=== PATIENT | male | born 1965 | race Caucasian/White ===

== ENCOUNTER 2020-10-29 20:46 | Outpatient (REF) | payer MEDICAID, SELFPAY ==
[2020-10-29 21:28] LABS: HCT 41.3 % (40.0-50.0); HGB 14.4 g/dL (13.5-17.5); MCHC 34.9 % (32.0-36.0); MCV 94.5 fL (80-95); MPV 12.5 fL (8.0-11.0); Platelet Count 212 10^3/uL (130-400); RBC 4.37 10^6/uL (4.36-5.78); RDW 12.1 % (11.8-14.1); RDW-SD 42.1 fL; WBC 7.19 10^3/uL (4.4-10.8)
[2020-10-29 21:46] LABS: ALT 39 U/L (16-63); AST 21 U/L (15-37); Albumin 3.5 g/dL (3.4-5.0); Alkaline Phosphatase 132 U/L (46-116); BUN 11 mg/dL (7-18); Bilirubin, Total 0.3 mg/dL (0.2-1.0); CREATININE 0.9 mg/dL (0.70-1.30); Calcium 9.1 mg/dL (8.5-10.1); Chloride 106 mmol/L (98-107); Glucose 111 mg/dL (74-106); Potassium 4.6 mmol/L (3.5-5.1); Sodium 140 mmol/L (136-145); Total Protein 7.7 g/dL (6.4-8.2)
[2020-10-29 21:58] LABS: TSH (W/Ref FT4) < 0.01 uIU/mL (0.36-3.74)
[2020-10-29 22:13] LABS: FREE T4 1.72 ng/dL (0.76-1.46)
[2020-10-29 23:08] LABS: Prothrombin Time 9.7 sec (9.3-11.0)
== END 2020-10-29 20:47 | disposition home or self-care (01) ==
LOC: NCHCN 20:46
PROVIDERS: PCP Family Medicine; Visit Provider Physician Assistant
DX: E05.90 Thyrotoxicosis, unspecified without thyrotoxic crisis or storm (principal); I10 Essential (primary) hypertension
CPT/HCPCS: 80053; 85027; 84439; 84443; 85610

== ENCOUNTER 2020-11-18 16:13 | Outpatient (REF) | payer MEDICAID, SELFPAY ==
[2020-11-18 16:41] LABS: Anion Gap 8.3 mmol/L (3-11); BUN 21 mg/dL (7-18); CO2 23.7 mmol/L (21.0-32.0); CREATININE 1.1 mg/dL (0.70-1.30); Calcium 9.4 mg/dL (8.5-10.1); Chloride 104 mmol/L (98-107); FREE T4 1.83 ng/dL (0.76-1.46); Glucose 87 mg/dL (74-106); Potassium 5.1 mmol/L (3.5-5.1); Sodium 136 mmol/L (136-145)
[2020-11-18 16:43] LABS: TSH < 0.01 uIU/mL (0.36-3.74)
[2020-11-18 20:57] LABS: T3, Total 212 ng/dL (97-169)
[2020-11-18 22:07] LABS: Thyroglobulin Antibody 108 U/mL (<=60); Thyroperoxidase Antibody 29 U/mL (<=60)
== END 2020-11-18 16:14 | disposition home or self-care (01) ==
LOC: NCHCN 16:13
PROVIDERS: PCP Family Medicine; Visit Provider Family Medicine
DX: I10 Essential (primary) hypertension (principal); E05.90 Thyrotoxicosis, unspecified without thyrotoxic crisis or storm
CPT/HCPCS: 80048; 86376; 84439; 84443; 84480

== ENCOUNTER 2021-06-17 03:10 | Outpatient (CLI) | payer MEDICAID, SELFPAY ==
[2021-06-17 12:31] LABS: Source Nasal/Nares
[2021-06-17 17:09] LABS: COVID-19 PCR Negative (Negative)
== END 2021-06-17 03:11 | disposition home or self-care (01) ==
LOC: LBO 03:10
PROVIDERS: PCP Family Medicine; Visit Provider Surgery
DX: Z20.822 Contact with and (suspected) exposure to COVID-19 (principal); Z01.818 Encounter for other preprocedural examination
CPT/HCPCS: 87635

== ENCOUNTER 2021-06-20 07:00 | Day surgery (SDC) | payer MEDICAID, SELFPAY ==
--- NOTE | 2021-06-20 06:07 | W.ANESPRE ---
General Info Date of Service Date Performed: 06/20/21 Height: 5 ft 10 in Weight: 81.42 kg Body Mass Index (BMI): 25.7 Surgical Procedure: Operation Date: 06/20/21 08:20 Proposed Procedures Side Surgeon p Colonoscopy Tari Arce MD Meds Allergies and Home Medications Allergies Allergy/AdvReac Type Severity Reaction Status Date / Time amoxicillin [From Augmentin] Allergy Severe diarrhea Verified 06/20/21 07:17 clavulanic acid Allergy Severe diarrhea Verified 06/20/21 07:17 [From Augmentin] bupropion [From Wellbutrin] Allergy Intermediate anger, Verified 06/20/21 07:17 agitation Home Medication Medication Instructions Recorded lisinopril 10 1 tab PO DAILY 01/13/21 mg-hydrochlorothiazide 12.5 mg tablet bisacodyl 5 mg tablet,delayed 5 mg PO ONCE #4 tab 06/02/21 release polyethylene glycol 3350 17 17 g PO ONCE #238 g 06/02/21 gram/dose oral powder Current Visit Medications: Current Medications Generic Name Dose Route Start Last Admin Trade Name Freq PRN Reason Stop Dose Admin Ringer's Solution 1,000 mls @ 80 mls/hr 06/20/21 06:00 IV 07/17/21 23:59 INFUSION CINTHYA IV Miscellaneous Supplies 1 each 06/20/21 06:00 Iv Access IV 07/17/21 23:59 DIRECTED CINTHYA Sodium Chloride 0 ml 06/20/21 06:00 Normal Saline Flush 10 Ml Syr IV 07/17/21 23:59 PRN PRN Sodium Chloride 0 ml 06/20/21 06:00 Normal Saline 10 Ml Vial IJ 07/17/21 23:59 DIRECTED PRN Sterile Water 0 ml 06/20/21 06:00 Water,Injection,Sterile 10 Ml Vial IJ 07/17/21 23:59 DIRECTED PRN PFSH Active Problems Active Problems: Problem Status Onset Code Alcohol dependence F10.20 Tobacco dependence F17.200 Major depression F32.9 Hypertension I10 Rotator cuff syndrome of right shoulder M75.101 Hyperthyroidism E05.90 Alcoholic hepatitis K70.10 Erectile dysfunction N52.9 Hearing loss H91.90 Medical History Medical History History of rectal cancer Tobacco Smoking/Tobacco Use Status: Current every day Tobacco Type: cigarettes Alcohol Alcohol Intake: current Alcohol intake frequency: 3 or more drinks per day Alcohol type: beer Details: 4-5 Beers/night Substance Use Substance use: Never Substance use type: does not use Vital Signs and Lab Results Vital Signs Most Recent Vital Signs in EMR: Temp Pulse Resp BP Pulse Ox 37.1 C 102 H 16 163/85 H 95 06/20/21 07:18 06/20/21 07:18 06/20/21 07:18 06/20/21 07:18 06/20/21 07:18 Lab Results Blood Type / Crossmatch: No Data to Display Complete Blood Count: No Data to Display Complete Metabolic Panel: No Data to Display Liver Function Panel: No Data to Display Coagulation Panel: No Data to Display Cardiac Panel: No Data to Display Arterial Blood Gas: No Data to Display Venous Blood Gas: No Data to Display Pancreas Panel: No Data to Display Thyroid Panel: No Data to Display Infectious Disease: Coronavirus (COVID-19)(PCR) Negative (Negative) 06/17/21 11:47 06/17/21 Coronavirus 2019 Source Nasal/Nares 06/17/21 11:47 06/17/21 Blood Cultures: No Data to Display Toxicology Panel: No Data to Display Anesthesia Assessment and Plan Anesthesia History Personal History: No History of Anesthesia Complications Family History: No Family History of Anesthesia Complications Exercise Tolerance Exercise Tolerance: Metabolic Equivalents>4 Pertinent Negatives Pertinent Negatives: No Symptoms of GERD, No Major Cardiovascular Symptoms or Complaints, No Major Pulmonary Symptoms or Complaints and No History of CVA/TIA Cardiac & Pulmonary Exam Cardiac Exam: Normal S1/S2 Heart Sounds Pulmonary Exam: Clear Bilateral Breath Sounds Implantable Cardiac Device Does patient have a Pacemaker or an ICD?: No Airway Exam Known Difficult Airway: No Mallampati Class: 2 Mouth Opening: Normal (> 3cm) Thyromental Distance: Greater than 3 cm Neck Range of Motion: Full ROM Neck Circumference: Normal Teeth Condition: Generalized Poor Dentition (Nothing loose per patient) ASA Classification ASA Score: ASA 2 Emergency Case?: No NPO Status NPO Status: NPO Clears >2 hours, Solids >8 hours Anesthesia Plan Resuscitation Status: Full Code Anesthesia Technique: General Anesthesia Airway Planned: Natural Airway Monitors Used: Standard Monitors
--- NOTE | 2021-06-20 06:29 | W.COLOREPORT ---
Colonoscopy Report Date of procedure: 06/20/21 Pre-op diagnosis general: Hx of rectal cancer Post-op diagnosis procedure note: same (mild diverticulosis) Procedure: Colonoscopy Surgeon: Tari Arce Anesthesia Type: General:No Airway (Krysta Tate CRNA) Estimated blood loss (mL): 0 Pathology: none sent Complications: None Disposition: same day Indications: 55 y/o male with history of HTN and rectal Cancer (2005; s/p lower anterior resection) presents for colonoscopy screening pre-op. His last screening was in 2013, which was unremarkable. He denies a family history of colon cancer. He denies any changes in bowel habits, reporting chronic BRB following BMs since his surgery and radiation in 2005 for rectal cancer. Denies black tarry stools, abdominal pain, diarrhea or constipation. He denies constitutional symptoms. Denies use of marijuana or any other recreational or illegal drugs. Risks, benefits and complications were reviewed and he wished to proceed. No guarantees were given or implied. Prep: Miralax/Dulcolax Procedure Start Time: 08:03 Procedure End Time: :28 Retraction Time: 15 minutes Findings: mild sigmoid diverticulosis Procedure Description: After informed consent was obtained the patient was taken to the procedure room and placed in a left decubitous position. Monitors were applied and a time out was done. The patients name, date of , procedure, allergies to medications and metal in their body was reviewed. The patient was then sedated. Once sedated and comfortable a rectal exam was done. External exam showed some radiation proctitis. Internal exam revealed a normal sphincter tone and no palpable masses. The prostate felt smooth. The scope was then introduced and retro-flexed. No internal hemorrhoids, polyps or masses were identified on retro-flexion. The scope was then advanced to the cecum without difficulty. The ileocecal vlave and appendiceal orifice were identified. The prep was adequate. There was some thick bile stuck to the right side of the colon which was irrigated away with 1 L of saline in order to visualize the mucosa. The scope was then slowly retracted over 15 minutes back into the rectum. There were no polyps. There was mild sigmoid diverticulosis noted. The scope was removed and the patient was woken up and taken back to Same day surgery in stable condition. The patient tolerated the procedure well and there were no immediate complications. Follow up: The patient should follow up in 5 years unless they develop changes in bowel habits or other new gastrointestinal complaints.
--- NOTE | 2021-06-20 06:30 | W.PM.DSUDISC ---
Discharge Plan Disposition Patient Disposition: HOME Condition: Good Discharge Details Reason For Visit: Colonoscopy Attending Provider: Tari Arce Primary Care Provider: James Rosario Home Meds and New Rx's Prescriptions: Continued lisinopril-hydrochlorothiazide 10-12.5 mg tablet 1 tab PO DAILY RF: 0 Discontinued bisacodyl [Dulcolax (bisacodyl)] 5 mg tablet,delayed release (DR/EC) 5 mg PO ONCE Qty: 4 RF: 0 polyethylene glycol 3350 17 gram/dose powder 17 g PO ONCE Qty: 238 RF: 0 Discharge Instructions Instructions: Diverticulosis (DC) Additional Instructions: Findings: mild inflammation of the rectal area from the radiation mild diverticulosis Follow up: 5 years due to your history of rectal cancer Please call if you develop: fevers >101.5 Nausea or Vomiting Abdominal pain that is not transient Rectal bleeding that is more then a tbsp A hard abdomen and inability to pass gas DAY SURGERY UNIT POST ENDOSCOPY INSTRUCTIONS Instructions for everyone who is given Anesthesia: For your safety, please do the following for the next 24 Hours: a. Do not drive or operate dangerous equipment b. Do not drink alcohol beverages or use any recreational drugs for the first 24 hours or while taking pain medications. The medications in your body may have a reaction that can be dangerous. c. Do not make any important decisions or sign any important papers 1. Generally there are no restrictions on your activity after a day or so has gone by, but you may feel a bit fatigued for a few days. 2. After you arrive home you may have a light meal and return to a normal diet as you can tolerate it without feeling sick to your stomach. 3. After surgery, you may feel pain or discomfort. This should be only transient, but if it persists please contact your doctor. 4. If there are any questions regarding the findings of your procedure, please feel free to contact your doctor. 6. If you are unable to contact your doctor with a problem, contact the hospital at [phone]. 7. Continue all your regular medications unless directed otherwise. I understand the above instructions and have no questions. Signature of Patient or Responsible Adult Escort Date/Time Name of Responsible Adult Escort Signature of Nurse Date/Time Activity:: Activity as Tolerated Diet:: high fiber diet Discharge Orders Discharge Orders: Discharge Order (Routine); Ordered 06/20/21 Ordered By: Tari Arce
[2021-06-20 07:18] VITALS: BP 163/85; PULSE 102; RESP 16; TEMP 37.1; O2SAT 95
[2021-06-20] MEDS: Lactated Ringers 1,000 ML 80 ML IV (07:31)
[2021-06-20 07:52] VITALS: BMI 25.7
[2021-06-20 08:35] VITALS: BP 101/67; PULSE 75; RESP 16; TEMP 37.1; O2SAT 95
--- NOTE | 2021-06-20 09:01 | W.ANESPOSTOP ---
Postoperative Evaluation Date, Time and Location Date Performed: 06/20/21 Time Performed: 08:38 Patient Location: Day Surgery Unit Vital Signs Most Recent Imported Vital Signs: Most Recent Vital Signs Temp Pulse Resp BP Pulse Ox 37.1 C 75 16 101/67 95 06/20/21 08:35 06/20/21 08:35 06/20/21 08:35 06/20/21 08:35 06/20/21 08:35 Pain Score Most Recent Pain Score: Most Recent Pain Score Pain Level 0 06/20/21 08:35 Assessment Mental Status: Awake (Alert & Oriented to Patient Baseline) Airway and Respiratory Function: Patent airway with normal (patient baseline) respiratory exam Cardiovascular Function: Hemodynamically Stable Hydration Status: Adequately Hydrated Nausea & Vomiting: No Nausea or Vomiting Pain: Pt. Denies Any Pain Peripheral Nerve Block: Patient did not receive a nerve block
[2021-06-20 09:12] VITALS: BP 150/85; PULSE 69; RESP 16; TEMP 36.7; O2SAT 99
== END 2021-06-20 09:28 | disposition home or self-care (01) ==
LOC: SUR 07:00
PROVIDERS: PCP Family Medicine; Visit Provider Surgery
PROC: 0DJD8ZZ Inspection of Lower Intestinal Tract, Via Natural or Artificial Opening Endoscopic (ICD-10-PCS; CPT 45378; principal; 2021-06-20 08:15)
DX: Z12.11 Encounter for screening for malignant neoplasm of colon (principal); Z85.048 Personal history of other malignant neoplasm of rectum, rectosigmoid junction, and anus; K57.30 Diverticulosis of large intestine without perforation or abscess without bleeding; F17.210 Nicotine dependence, cigarettes, uncomplicated
CPT/HCPCS: 45378; J2001

== ENCOUNTER 2021-09-23 13:31 | Outpatient (REF) | payer MEDICAID, SELFPAY ==
[2021-09-23 15:23] LABS: ALT 42 U/L (16-63); AST 24 U/L (15-37); Albumin 3.4 g/dL (3.4-5.0); Alkaline Phosphatase 101 U/L (46-116); Anion Gap 9.1 mmol/L (3-11); BUN 18 mg/dL (7-18); Bilirubin, Total 0.5 mg/dL (0.2-1.0); CO2 21.9 mmol/L (21.0-32.0); Chloride 107 mmol/L (98-107); Glucose 94 mg/dL (74-106); Potassium 4.5 mmol/L (3.5-5.1); Sodium 138 mmol/L (136-145); TSH < 0.01 uIU/mL (0.36-3.74); Total Protein 7.5 g/dL (6.4-8.2)
[2021-09-23 22:52] LABS: T3, Total 230 ng/dL (97-169)
== END 2021-09-23 13:32 | disposition home or self-care (01) ==
LOC: NCHCN 13:31
PROVIDERS: PCP Family Medicine; Visit Provider Family Medicine
DX: I10 Essential (primary) hypertension (principal); E05.90 Thyrotoxicosis, unspecified without thyrotoxic crisis or storm; F10.10 Alcohol abuse, uncomplicated
CPT/HCPCS: 80053; 84439; 84443; 84480

== ENCOUNTER 2021-10-29 16:42 | Emergency (ER) | payer MEDICAID, SELFPAY ==
[2021-10-29] VITALS (39 sets, daily range): BP systolic 124–179; BP diastolic 70–86; PULSE 64–90; RESP 13–22; TEMP 37.3; O2SAT 95–99
--- NOTE | 2021-10-29 16:30 | RT.EKG_ITS ---
APPROVED REPORT Exam: Resting ECG Reason for Exam: right sided chest pain Patient Location: E HR:72 bpm ECG Measurements Heart Rate 72 AXIS ND 167 P 44 QRSd 90 QRS 28 QT 355 T 31 QTc 388 Conclusion Sinus rhythm...normal P axis, V-rate 60- 99 sinus rhythm, normal axis, consider hyperacute T waves V3-V5
--- NOTE | 2021-10-29 17:00 | DI.RAD_ITS ---
Exam(s) XR CHEST 2V PA LATERAL EXAM: XR CHEST 2V PA LATERAL CLINICAL HISTORY: right chest pain. TECHNIQUE: 2D digital imaging was performed. COMPARISON: CR CHEST 2 VIEWS PA,LAT from 04/11/2016 FINDINGS: 2 views: Heart size is normal. The mediastinum is not widened. Relatively round calcific density seen over the lateral aspect of the left lower lobe region is again noted, unchanged in size and therefore most probably benign. It measures 3 x 3 cm. No additional o sseous findings. No acute lung findings. No pleural effusions. IMPRESSION: Left rib or pleural mass, partially calcified and unchanged from 2016 and therefore most probably radha ign. No new additional bone lesions. No acute pulmonary findings. DATA REPOSITORY: RADIATION DOSE DELIVERED:
[2021-10-29 17:30] LABS: Abs Immature Grans 0.02 10^3/uL (0.0-0.06); Absolute Basophil Count 0.03 10^3/uL (0.0-0.2); Absolute Eosinophil Count 0.29 10^3/uL (0.0-0.7); Absolute Lymphocyte Count 1.02 10^3/uL (1.2-3.4); Absolute Monocyte Count 0.81 10^3/uL (0.1-0.8); Absolute Neutrophil Count 4.62 10^3/uL (1.2-6.7); Basophils % 0.4; Eosinophils % 4.3; HCT 40.2 % (40.0-50.0); HGB 13.9 g/dL (13.5-17.5); Immature Grans % 0.3; MCH 33.2 pg (27.0-33.0); MCHC 34.6 % (32.0-36.0); MCV 95.9 fL (80-95); MPV 10.6 fL (8.0-11.0); Monocytes % 11.9; Neutrophils % 68.1; Nucleated RBC 0 %; Platelet Count 233 10^3/uL (130-400); RBC 4.19 10^6/uL (4.36-5.78); RDW 11.8 % (11.8-14.1); RDW-SD 41.1 fL; WBC 6.79 10^3/uL (4.4-10.8)
[2021-10-29 17:52] LABS: ALT 58 U/L (16-63); AST 25 U/L (15-37); Albumin 3.5 g/dL (3.4-5.0); Alkaline Phosphatase 114 U/L (46-116); Anion Gap 8.5 mmol/L (3-11); BUN 22 mg/dL (7-18); Bilirubin, Total 0.3 mg/dL (0.2-1.0); CO2 23.5 mmol/L (21.0-32.0); CREATININE 1.2 mg/dL (0.70-1.30); Calcium 8.7 mg/dL (8.5-10.1); Chloride 106 mmol/L (98-107); Glucose 115 mg/dL (74-106); Magnesium 1.7 mg/dL (1.8-2.4); Sodium 138 mmol/L (136-145); Troponin I < 50 ng/L (<or=60)
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
[2021-10-29 18:09] LABS: D-Dimer 555 ng/mlFEU (<500)
--- NOTE | 2021-10-29 18:15 | RT.EKG_ITS ---
APPROVED REPORT Exam: Resting ECG Reason for Exam: 1899 Patient Location: E HR:61 bpm ECG Measurements Heart Rate 61 AXIS HI 199 P 15 QRSd 91 QRS 12 QT 374 T 26 QTc 377 Conclusion Sinus rhythm...normal P axis, V-rate 60- 99 sinus rhythm, normal axis, peaked T waves V3-V5
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
[2021-10-29 19:20] LABS: Troponin I < 50 ng/L (<or=60)
== END 2021-10-29 20:24 | disposition home or self-care (01) ==
PROVIDERS: Emergency Provider Physician Assistant; PCP Family Medicine
DX: R07.9 Chest pain, unspecified (principal); F17.210 Nicotine dependence, cigarettes, uncomplicated
CPT/HCPCS: 36415; 80053; 93005; 99284; 71046; 83735; 84484; 85025; 85379; 93010; 99283

== ENCOUNTER 2021-11-10 02:50 | Outpatient (CLI) | payer MEDICAID, SELFPAY ==
--- NOTE | 2021-11-10 | DI.NM_ITS ---
Exam(s) NM I123 THYROID UP SC DAY 1 NM I123 THYROID UP SC DAY 2 CLINICAL HISTORY: HYPERTHYROIDISM E05.90, ? GRAVES. COMPARISON: NM NM I123 THYROID UP SC DAY 2 from 11/10/2021 TECHNIQUE: Capsule Dose: 348 uCi I-123 FINDINGS: Thyroid uptake: The 4 hour I 123 uptake is 17.8 percent. The total radioiodine uptake was 54.5 % at 24 hours. Thyroid scan: Homogeneous appearance of thyroid gland. No cold or hot nodules are demonstrated. IMPRESSION: 1. 24 hour radioiodine uptake of 54.5%, above the normal range . 2. No hot or cold nodules SNM Guidelines: Normal thyroid uptake uptake values 10-35%. Graves Uptake >50-80%. DATA REPOSITORY:
== END 2021-11-10 03:10 ==
PROVIDERS: PCP Family Medicine; Visit Provider Family Medicine
DX: E05.90 Thyrotoxicosis, unspecified without thyrotoxic crisis or storm (principal); R94.6 Abnormal results of thyroid function studies
CPT/HCPCS: 78014; A9512

== ENCOUNTER → 2022-02-16 02:20 | Outpatient (CLI) | payer MEDICAID, SELFPAY ==
--- NOTE | 2022-02-16 13:45 | DI.CTLCSR_ITS ---
Exam(s) CT CHEST LUNG CANCER SCREEN EXAM: CT CHEST LUNG CANCER SCREEN CLINICAL HISTORY: SCREENING FOR LUNG CA, CURRENT SMOKER, F17.209,ADULT PREVENTATIVE CARE,. TECHNIQUE: Imaging Protocol: Low Dose Technique CONTRAST MATERIAL: None COMPARISON: CR CHEST 2 VIEWS PA,LAT from 04/11/2016 CR,XR XR CHEST 2V PA LATERAL from 10/29/2021 FINDINGS: CHEST: LUNGS: No significant focal right lung findings.. The left side there is again noted a pleural based partially calcified nodule measuring approximately 3.5 by 2.0 cm, basically present since chest x-ra y of at least 2015 and exhibiting minimal if any significant change in size and is not associated wit h overlying rib destruction. In addition a calcium appears to contain some fat content. No other si milar findings elsewhere in either lung field. No pleural effusions. MEDIASTINUM: There is no obvious hilar nor mediastinal adenopathy. CARDIAC: Heart size is normal. There is no pericardial effusion.Caliber of the thoracic aorta is wit hin normal limits. OTHER: Right kidney is atrophic. No adrenal masses. No splenomegaly. OSSEOUS: No significant osseous lesions.Mild loss of height superior endplate L1, not acute appearing . IMPRESSION: 1. Stable appearance of partially calcified and partially fat containing 3.5 x 2.0 centimeter pleural based nodule in the left lower lobe, not associated with overlying rib destruction. No new pulmonar y findings. No pleural effusions nor intrathoracic adenopathy. 2. Right kidney is atrophic. 3. Lung RADS Cat 2 - Benign Appearance / Behavior: Nodules with a very low likelihood of becoming a c linically active cancer due to size or lack of growth Lung-RADS 1.0 CATEGORIES: Category 0 - Prior chest CT exam(s) being located for comparison. Category 1 - Annual screening in 12 months. No nodules or definitely benign nodules. Category 2 - Annual screening in 12 months. Benign appearance. Nodules with low likelihood of becomin g active cancer. Category 3 - 6-month follow-up. Probably benign. Short-term follow-up suggested. Nodules with low lik elihood of becoming active cancer. Category 4A - 3-month follow-up and CT/PET if >8 mm in size. Suspicious finding. Findings which requi re additional testing. Category 4B - Findings which require additional testing and tissue sampling. Category 4X - Category 3 or 4 nodules with additional features or imaging findings that increases the suspicion of malignancy. Modifier S- Potentially clinically significant findings (non lung cancer) RADIATION DOSE DELIVERED: 84.82mGy.cm Total DLP 1.84mGy CTDIvol DATA REPOSITORY: All CT scans at this facility are submitted to the National Radiology Data Registry (NRDR) Dose Index Registry (DIR) with the [employer] ([employer]). RADIATION OPTIMIZATION: All CT scans at this facility use at least one of these dose optimization te chniques: automated exposure control; mA and/or kV adjustment per patient size (includes targeted exa ms where dose is matched to clinical indication); or iterative reconstruction.
== END ==
PROVIDERS: PCP Family Medicine; Visit Provider Family Medicine
DX: Z00.00 Encounter for general adult medical examination without abnormal findings (principal); Z12.2 Encounter for screening for malignant neoplasm of respiratory organs; R91.8 Other nonspecific abnormal finding of lung field; N26.1 Atrophy of kidney (terminal); F17.209 Nicotine dependence, unspecified, with unspecified nicotine-induced disorders
CPT/HCPCS: 71271